=== PATIENT | female | born 1955 | race Caucasian/White ===

== ENCOUNTER 2016-06-09 05:15 | Day surgery (SDC) | payer OTHER ==
[~2016-06-09] VITALS: Ht 152.4 cm; Wt 61.3 kg
[2016-06-09 06:47] VITALS: Ht 152.4 cm; Wt 61.3 kg
[2016-06-09] MEDS ORDERED: AMLO2.5T78 PO (06:53)
[2016-06-09] MEDS ORDERED: METO-448 PO (06:53)
[2016-06-09] MEDS ORDERED: LEVO25TA53 PO (06:53)
[2016-06-09] MEDS ORDERED: PRAV10TA43 PO (06:53)
[2016-06-09 07:19] VITALS: BP 176/98; PULSE 67; RESP 17
[2016-06-09] MEDS ORDERED: MIDAZOLAM 1 MG/ML 2 ML INJ ONE ×2 (07:45)
[2016-06-09] MEDS ORDERED: FENTAnyl 50 MCG/ML VIAL ONE (07:45)
[2016-06-09 08:10] VITALS: BP 164/108; PULSE 83; RESP 18
--- NOTE | 2016-06-09 11:19 | GILP ---
DATE OF PROCEDURE: NAME OF PROCEDURE: Esophagogastroduodenoscopy and biopsy. SURGEON: Barbara Villarreal MD. PREOPERATIVE DIAGNOSES: 1. Upper gastrointestinal tract bleeding. 2. Iron-deficiency anemia. POSTOPERATIVE DIAGNOSES: 1. Hiatal hernia with reflux esophagitis. 2. Gastritis. 3. Gastric mucosal biopsies were positive for Helicobacter pylori infection. 4. 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 INDICATION FOR THE PROCEDURE: Ms. Brisa Dempsey is a 61-year-old female patient who had upper gastrointestinal tract bleeding. She also had iron deficiency anemia. The patient was scheduled fo r endoscopic examination for further evaluation. The procedure and possible complications were well explained to the patient. She understood and con sented to the procedure. DESCRIPTION OF PROCEDURE: Under the influence of fentanyl and Versed, the gastroscope was carefully introduced into the esophagus and, under direct vision, it was advanced to the stomach and through the pylorus into the duodenal bulb and descending duodenum. FINDINGS: ESOPHAGUS: The patient had hiatal hernia and gastroesophageal reflux disease. STOMACH: The patient had gastritis, and gastric mucosal biopsies are positive for H pylori infectio n. The patient also had severe angiodysplastic lesions in the gastric antrum with watermelon stomac h. DUODENUM: Normal. She tolerated the procedure very well. There were no complications from the procedure. At the end of the procedure, she was awake with stable vital signs, and she was discharged home to the care of her family. IMPRESSION: 1. Hiatal hernia. 2. Gastroesophageal reflux disease. 3. Gastritis, and biopsy was positive for Helicobacter pylori infection. 4. Severe angiodysplastic lesions in the gastric antrum with watermelon stomach. PLAN: 1. Omeprazole 40 mg p.o. q.a.m. 2. Doxycycline 100 mg p.o. b.i.d. for 14 days. 3. Flagyl 500 mg p.o. b.i.d. for 14 days. 4. Zantac 300 mg p.o. b.i.d. for 14 days. 5. Pepto-Bismol 2 tablets p.o. q.i.d. for 14 days. Dictated By: BARBARA JOHNSON/JA Conf#: [id number] DID#: [id number] CC: BARBARA VILLARREAL MD;*[facility]*
== END 2016-06-09 10:14 | disposition home or self-care (01) ==
LOC: GIL 05:15
PROVIDERS: ATTEND Internal Medicine Gastroenterology
DX: K21.0 Gastro-esophageal reflux disease with esophagitis (principal); K29.70 Gastritis, unspecified, without bleeding; K44.9 Diaphragmatic hernia without obstruction or gangrene
CPT/HCPCS: 43239; 87081; J2250; J3010; Z7610